=== PATIENT | female | born 1955 | race Caucasian/White ===

== ENCOUNTER 2020-12-05 05:50 | Inpatient (IN) ==
[2020-12-05] MEDS ORDERED: SODIUM CHLORIDE 0.9% 1,000 ML IV STA (06:15)
[2020-12-05] MEDS ORDERED: SODIUM CHLORIDE 0.9% 500 ML IV STA (06:15)
[2020-12-05 06:29] LABS: ABG Base Excess -8.8 MMOL/L (-2.5-2.5); ABG HCO3 13.4 MMOL/L (20-26); ABG Oxygen Saturation 95.8 % (95-100); ABG PH 7.439 (7.35-7.45); ABG PO2 79.7 MM HG (80-95)
[2020-12-05 06:35] LABS: Basophils % 0.6 % (0.0-0.8); Hematocrit 35.9 VOL% (35.7-47.0); Hemoglobin 11.8 GM/DL (12.0-16.0); Immature Granulocytes % 1.3 %; Immature Granulocytes Absolute 0.02 #; Lymphocytes # 0.2 10*3/uL (1.4-4.0); Mean Corpuscular HGB Conc 32.9 GM/DL (32-36); Mean Corpuscular Volume 82.3 FL (87-102); Mean Platelet Volume 11.2 FL (9.6-12.0); Monocytes % 1.9 % (1.7-12.7); Neutrophils % 83.2 % (38.7-73.9); Red Blood Count 4.36 MC/CUMM (3.8-5.5); Red Cell Distribution Width 14.5 % (9.3-17.3)
[2020-12-05 06:36] LABS: ABG PCO2 20.2 MM HG (35-48)
[2020-12-05 06:44] LABS: White Blood Count 1.5 T/CUMM (4-12)
[2020-12-05 06:45] LABS: Platelet Count 97 T/CUMM (130-400)
[2020-12-05 06:45] LABS: Bacteria,Urine Occasional /HPF (Few); Bilirubin,Urine Negative (Negative); Blood, Urine Large mg/dL (Negative); Glucose,Urine (UA) >=500 mg/dL (Negative); Ketones,Urine 20 mg/dL (Negative); Mucus,Urine Occasional /LPF (Occasional); Nitrite,Urine Positive (Negative); Protein,Urine 100 MG/DL; RBC,Urine 5 /HPF (0-4); Squamous Epithelial Cell,Urine Occasional /HPF (0-10); Urine Appearance Slightly Hazy (Clear); Urine Color Yellow (Yellow); Urine Specific Gravity 1.021 (1.001-1.035); Urine Urobilinogen < 2.0 EU/DL (0.2-1.0)
[2020-12-05] MEDS ORDERED: cefTRIAXone 1,000 MG in SODIUM CHLORIDE 0.9% 100 ML IV STA (06:48)
[2020-12-05 06:51] LABS: Albumin 2.3 G/DL (3.4-5.0); Calcium 8.3 MG/DL (8.5-10.1); Osmolality,Calculated 289.4 MOS/KG (273-304); Total Protein 6.7 G/DL (6.4-8.2)
[2020-12-05 06:55] LABS: Band Neutrophils 3 % (0-10); Eosinophils 2 % (0-10); Lymphocytes 12 % (20-55); Nucleated Red Blood Cells 1 (0-5); Platelet Estimate Decreased; Segmented Neutrophils 81 % (50-85); Total Cells Counted 100
[2020-12-05 06:56] LABS: Hypochromasia Slight; Microcytosis Slight
[2020-12-05] MEDS ORDERED: INSULIN REGULAR 100 UNIT/ML IV STA (07:05)
[2020-12-05] MEDS ORDERED: MAGNESIUM SULF RIDER 2 GM/50 ML PREMIX IV PRN (08:17)
[2020-12-05] MEDS ORDERED: POTASSIUM CHLORIDE RIDER 10 MEQ/100 ML PREMIX IV PRN (08:17)
[2020-12-05] MEDS ORDERED: SODIUM PHOSPHATE INJ 23.8 MMOL in SODIUM CHLORIDE 0.9% 250 ML IV PRN (08:17)
[2020-12-05] MEDS ORDERED: SODIUM BICARB INJ 100 MEQ in STERILE WATER INJ 400 ML IV PRN (08:17)
[2020-12-05] MEDS ORDERED: MAGNESIUM SULF RIDER 4 GM/100 ML PREMIX IV PRN (08:17)
[2020-12-05] MEDS ORDERED: DEXTROSE 50% 25 GM/50 ML VIAL IV PRN ×2 (08:17)
[2020-12-05] MEDS ORDERED: INSULIN REGULAR DRIP 100 ML IV SCH (08:30)
[2020-12-05] MEDS: POTASSIUM CHLORIDE 20 MEQ TABLET PO PRN ×5 (09:00→21:00)
[2020-12-05 09:43] LABS: Osmolality,Calculated 279.2 MOS/KG (273-304); Potassium 3.2 MMOL/L (3.5-5.1)
[2020-12-05] MEDS ORDERED: ALBUTEROL 2.5 MG/3 ML NEB RESP TX PRN (10:31)
[2020-12-05] MEDS: SODIUM CHLORIDE 0.45% 1,000 ML IV SCH ×2 (11:22→19:35)
[2020-12-05] MEDS: INSULIN LISPRO 100 UNIT/ML SUBCUT SCH ×3 (11:26→20:54)
[2020-12-05] MEDS: INSULIN GLARGINE 100 UNIT/ML SUBCUT SCH (11:26)
[2020-12-05] MEDS ORDERED: SODIUM CHLORIDE 0.9% 1,000 ML IV SCH (13:30)
[2020-12-05] MEDS: MENTHOL/ZINC OXIDE OINT 71 GM JAR TOP SCH ×2 (14:13→20:54)
[2020-12-05 14:39] LABS: Calcium 7.9 MG/DL (8.5-10.1); Osmolality,Calculated 278.5 MOS/KG (273-304); Potassium 3.7 MMOL/L (3.5-5.1)
[2020-12-05] MEDS ORDERED: SODIUM PHOSPHATE INJ 15 MMOL in SODIUM CHLORIDE 0.9% 250 ML IV ONE (16:00)
[2020-12-05] MEDS: GABAPENTIN 300 MG CAPSULE PO SCH ×2 (16:20→20:55)
[2020-12-05] MEDS: ACETAMINOPHEN 325 MG TABLET PO PRN (16:44)
[2020-12-05 18:47] LABS: Osmolality,Calculated 280.4 MOS/KG (273-304); Potassium 3.4 MMOL/L (3.5-5.1)
[2020-12-05] MEDS: traZODone 50 MG TABLET PO SCH (20:54)
[2020-12-05] MEDS: TOPIRAMATE 25 MG TABLET PO SCH (20:55)
[2020-12-05] MEDS: OLANZapine 5 MG TABLET PO SCH (20:55)
[2020-12-06] MEDS: POTASSIUM CHLORIDE 20 MEQ TABLET PO PRN (00:43)
[2020-12-06] MEDS: ACETAMINOPHEN 325 MG TABLET PO PRN ×2 (00:43→11:53)
[2020-12-06] MEDS ORDERED: SODIUM CHLORIDE 0.45% 1,000 ML IV SCH (01:30)
[2020-12-06] MEDS: SODIUM CHLORIDE 0.45% 1,000 ML IV SCH ×2 (03:54→11:52)
[2020-12-06 07:07] LABS: Basophils % 0.3 % (0.0-0.8); Eosinophils % 0.3 % (0.00-10.9); Hematocrit 31.4 VOL% (35.7-47.0); Hemoglobin 10.4 GM/DL (12.0-16.0); Immature Granulocytes % 5.8 %; Immature Granulocytes Absolute 0.38 #; Lymphocytes % 14.4 % (21.3-54.2); Mean Corpuscular HGB Conc 33.1 GM/DL (32-36); Mean Corpuscular Volume 82.2 FL (87-102); Mean Platelet Volume 10.5 FL (9.6-12.0); Monocytes % 9.4 % (1.7-12.7); Neutrophils % 69.8 % (38.7-73.9); Platelet Count 116 T/CUMM (130-400); Red Blood Count 3.82 MC/CUMM (3.8-5.5); Red Cell Distribution Width 14.9 % (9.3-17.3); White Blood Count 6.6 T/CUMM (4-12)
[2020-12-06 07:26] LABS: Eosinophils 1 % (0-10); Hypochromasia Slight; Lymphocytes 18 % (20-55); Microcytosis Slight; Platelet Estimate Decreased; Segmented Neutrophils 77 % (50-85); Total Cells Counted 100
[2020-12-06 07:33] LABS: Calcium 8.3 MG/DL (8.5-10.1); Osmolality,Calculated 277.1 MOS/KG (273-304); Potassium 4.4 MMOL/L (3.5-5.1)
[2020-12-06 07:36] LABS: Risk Ratio 17.91; VLDL Cholesterol 124.2 MG/DL
[2020-12-06] MEDS: INSULIN GLARGINE 100 UNIT/ML SUBCUT SCH ×2 (08:31→08:37)
[2020-12-06] MEDS: PANTOPRAZOLE 40 MG TABLET PO SCH (08:31)
[2020-12-06] MEDS: INSULIN LISPRO 100 UNIT/ML SUBCUT SCH ×5 (08:31→21:48)
[2020-12-06] MEDS: FENOFIBRATE 160 MG TABLET PO SCH (08:32)
[2020-12-06] MEDS: TOPIRAMATE 25 MG TABLET PO SCH ×2 (08:32→21:49)
[2020-12-06] MEDS: GABAPENTIN 300 MG CAPSULE PO SCH ×3 (08:32→21:48)
[2020-12-06] MEDS: PARoxetine 20 MG TABLET PO SCH (08:33)
[2020-12-06] MEDS: MENTHOL/ZINC OXIDE OINT 71 GM JAR TOP SCH ×2 (08:33→21:48)
[2020-12-06] MEDS: cefTRIAXone 1,000 MG in SODIUM CHLORIDE 0.9% 100 ML IV SCH (08:34)
[2020-12-06] MEDS ORDERED: SIMVASTATIN 10 MG TABLET PO SCH (09:00)
[2020-12-06] MEDS ORDERED: INFLUENZA VIRUS VACCINE 0.5 ML SYRINGE IM ONE (10:00)
[2020-12-06] MEDS ORDERED: PNEUMOCOCCAL VACCINE (13 VALENT) 0.5 ML SYRINGE IM ONE (10:00)
[2020-12-06] MEDS: NICOTINE 21 MG/24 HR PATCH TRANSDERM SCH (10:47)
[2020-12-06 11:17] LABS: Ferritin 704.5 ng/mL (8-252)
[2020-12-06] MEDS ORDERED: SODIUM PHOSPHATE INJ 15 MMOL in SODIUM CHLORIDE 0.9% 250 ML IV ONE (12:00)
[2020-12-06 14:19] LABS: Calcium 8.4 MG/DL (8.5-10.1); Potassium 4.2 MMOL/L (3.5-5.1)
[2020-12-06] MEDS: traZODone 50 MG TABLET PO SCH (21:48)
[2020-12-06] MEDS: OLANZapine 5 MG TABLET PO SCH (21:49)
[2020-12-07] MEDS: SODIUM CHLORIDE 0.45% 1,000 ML IV SCH ×3 (01:08→14:49)
[2020-12-07] MEDS ORDERED: FERROUS SULFATE 325 MG TABLET PO SCH (08:00)
[2020-12-07] MEDS: cefTRIAXone 1,000 MG in SODIUM CHLORIDE 0.9% 100 ML IV SCH (08:15)
[2020-12-07] MEDS: GABAPENTIN 300 MG CAPSULE PO SCH (08:16)
[2020-12-07] MEDS: PANTOPRAZOLE 40 MG TABLET PO SCH (08:16)
[2020-12-07] MEDS: PARoxetine 20 MG TABLET PO SCH (08:17)
[2020-12-07] MEDS: TOPIRAMATE 25 MG TABLET PO SCH (08:17)
[2020-12-07] MEDS: NICOTINE 21 MG/24 HR PATCH TRANSDERM SCH (08:18)
[2020-12-07] MEDS: FENOFIBRATE 160 MG TABLET PO SCH (08:25)
[2020-12-07 08:26] LABS: Basophils % 0.1 % (0.0-0.8); Eosinophils % 0.1 % (0.00-10.9); Hematocrit 28.9 VOL% (35.7-47.0); Immature Granulocytes % 2.3 %; Immature Granulocytes Absolute 0.17 #; Lymphocytes # 1.3 10*3/uL (1.4-4.0); Lymphocytes % 17.8 % (21.3-54.2); Mean Corpuscular HGB Conc 34.6 GM/DL (32-36); Mean Corpuscular Volume 80.1 FL (87-102); Mean Platelet Volume 10.9 FL (9.6-12.0); Monocytes % 9.2 % (1.7-12.7); Neutrophils % 70.5 % (38.7-73.9); Platelet Count 125 T/CUMM (130-400); Red Blood Count 3.61 MC/CUMM (3.8-5.5); Red Cell Distribution Width 15.3 % (9.3-17.3); White Blood Count 7.4 T/CUMM (4-12)
[2020-12-07] MEDS: INSULIN GLARGINE 100 UNIT/ML SUBCUT SCH (08:35)
[2020-12-07] MEDS: INSULIN LISPRO 100 UNIT/ML SUBCUT SCH ×4 (08:36→12:28)
[2020-12-07] MEDS: MENTHOL/ZINC OXIDE OINT 71 GM JAR TOP SCH (08:38)
[2020-12-07 08:46] LABS: Lymphocytes 16 % (20-55); Platelet Estimate Normal; Segmented Neutrophils 76 % (50-85); Total Cells Counted 100
[2020-12-07 08:57] LABS: Calcium 8.6 MG/DL (8.5-10.1); Osmolality,Calculated 281.7 MOS/KG (273-304); Potassium 3.6 MMOL/L (3.5-5.1)
[2020-12-07] MEDS ORDERED: AZITHROMYCIN INJ 500 MG in SODIUM CHLORIDE 0.9% 250 ML IV SCH (11:00)
[2020-12-07] MEDS ORDERED: METOPROLOL TARTRATE 25 MG TABLET PO SCH ×2 (11:00)
[2020-12-07 11:47] VITALS: BP 114/74
== END 2020-12-07 15:30 | disposition home or self-care (01) | DRG 871 ==
LOC: EDUNIT# → EDBD → N.ED 05:50 → N.EDINP 08:17 → SUATTDRO 08:17 → N.ICU 08:38 → N.4E 12-06 17:06
PROVIDERS: ADMIT Internal Medicine; ATTEND Internal Medicine

== ENCOUNTER 2021-10-05 14:15 | Inpatient (IN) ==
[2021-10-05] MEDS ORDERED: ASPIRIN 325 MG TABLET PO STA (14:55)
[2021-10-05] MEDS ORDERED: DILTIAZEM 25 MG/5 ML VIAL IV STA ×2 (14:57→16:07)
[2021-10-05 15:28] LABS: Basophils # 0.1 10*3/uL (0.0-0.2); Basophils % 0.7 % (0.0-0.8); Eosinophils % 0.1 % (0.00-10.9); Hematocrit 44.3 VOL% (35.7-47.0); Hemoglobin 13.8 GM/DL (12.0-16.0); Immature Granulocytes % 7.9 %; Immature Granulocytes Absolute 1.08 #; Lymphocytes # 0.8 10*3/uL (1.4-4.0); Lymphocytes % 5.8 % (21.3-54.2); Mean Corpuscular HGB Conc 31.2 GM/DL (32-36); Mean Corpuscular Volume 90.2 FL (87-102); Mean Platelet Volume 11.1 FL (9.6-12.0); Monocytes # 1.2 10*3/uL (0.11-0.8); Monocytes % 9.1 % (1.7-12.7); Neutrophils % 76.4 % (38.7-73.9); Platelet Count 216 T/CUMM (130-400); Red Blood Count 4.91 MC/CUMM (3.8-5.5); Red Cell Distribution Width 14.4 % (9.3-17.3); White Blood Count 13.6 T/CUMM (4-12)
[2021-10-05 15:45] LABS: Albumin 2.5 G/DL (3.4-5.0); Bilirubin,Total 0.7 MG/DL (0.20-1.00); Calcium 11.1 MG/DL (8.5-10.1); Osmolality,Calculated 297.8 MOS/KG (273-304); Potassium 4.4 MMOL/L (3.5-5.1)
[2021-10-05 15:58] LABS: Band Neutrophils 31 % (0-10); Lymphocytes 4 % (20-55); Platelet Estimate Adequate; Total Cells Counted 100
[2021-10-05] MEDS ORDERED: SODIUM CHLORIDE 0.9% 1,000 ML IV STA ×2 (16:02→16:03)
[2021-10-05] MEDS ORDERED: INSULIN REGULAR 100 UNIT/ML IV STA (16:02)
[2021-10-05] MEDS: DILTIAZEM INJ 100 MG in SODIUM CHLORIDE 0.9% 100 ML IV SCH (16:24)
[2021-10-05 16:27] LABS: Arterial Base Excess iSTAT -24 MMOL/L (-2.5-2.5); Arterial Bicarbonate iSTAT 4.1 MMOL/L (20-26); Arterial O2 Saturation iSTAT 97 % (95-100); Arterial PCO2 iSTAT 15 MM HG (35-48); Arterial PO2 iSTAT 121 MM HG (80-95); Arterial Total CO2 iSTAT < 5 MMO/L (23-27); Arterial pH iSTAT 7.058 (7.35-7.45)
[2021-10-05] MEDS ORDERED: LACTATED RINGERS 1,000 ML IV ONE (16:53)
[2021-10-05] MEDS ORDERED: DIGOXIN 0.5 MG/2 ML AMP IV STA (16:55)
[2021-10-05] MEDS ORDERED: MAGNESIUM SULF RIDER 4 GM/100 ML PREMIX IV PRN (17:06)
[2021-10-05] MEDS ORDERED: MAGNESIUM SULF RIDER 2 GM/50 ML PREMIX IV PRN (17:06)
[2021-10-05] MEDS ORDERED: SODIUM PHOSPHATE INJ 22.7 MMOL in SODIUM CHLORIDE 0.9% 250 ML IV PRN (17:06)
[2021-10-05] MEDS ORDERED: DEXTROSE 50% 25 GM/50 ML VIAL IV PRN (17:06)
[2021-10-05] MEDS ORDERED: GLUCAGON 1 MG VIAL IM PRN (17:06)
[2021-10-05] MEDS ORDERED: DEXTROSE 10% 250 ML BAG IV PRN ×2 (17:12)
[2021-10-05] MEDS ORDERED: LORazepam 1 MG TABLET ONE (17:21)
[2021-10-05] MEDS ORDERED: LORazepam 1 MG TABLET PO STA (17:30)
[2021-10-05] MEDS ORDERED: DIGOXIN 0.5 MG/2 ML AMP IV ONE (18:00)
[2021-10-05] MEDS: LACTATED RINGERS 1,000 ML IV SCH ×2 (19:30→23:04)
[2021-10-05 19:52] LABS: Calcium 9.7 MG/DL (8.5-10.1); Potassium 4.7 MMOL/L (3.5-5.1)
[2021-10-05] MEDS: INSULIN REGULAR DRIP 100 ML IV PRN (20:40)
[2021-10-05 20:51] LABS: Bacteria,Urine Occasional /HPF (Few); Glucose,Urine (UA) 500 mg/dL (Negative); Mucus,Urine Occasional /LPF (Occasional); Protein,Urine 100 mg/dL (Negative); Urine Appearance Clear (Clear); Urine Color Yellow (Yellow)
[2021-10-05 20:52] LABS: Bilirubin,Urine Small mg/dL (Negative); Blood, Urine Large mg/dL (Negative); Ketones,Urine >=160 mg/dL (Negative); Nitrite,Urine Negative (Negative)
[2021-10-05] MEDS ORDERED: INSULIN GLARGINE 100 UNIT/ML SUBCUT SCH (21:00)
[2021-10-05] MEDS: ENOXAPARIN 80 MG/0.8 ML SYRINGE SUBCUT SCH (21:50)
[2021-10-05] MEDS: GABAPENTIN 100 MG CAPSULE PO SCH (21:51)
[2021-10-05] MEDS: NYSTATIN CREAM 15 GM TUBE TOP SCH (21:51)
[2021-10-05] MEDS: OLANZapine 5 MG TABLET PO SCH (21:51)
[2021-10-06 00:49] LABS: Calcium 10.1 MG/DL (8.5-10.1); Osmolality,Calculated 289.7 MOS/KG (273-304); Potassium 4.1 MMOL/L (3.5-5.1)
[2021-10-06] MEDS: LACTATED RINGERS 1,000 ML IV SCH (04:25)
[2021-10-06 05:01] LABS: Basophils # 0.1 10*3/uL (0.0-0.2); Basophils % 2.2 % (0.0-0.8); Hematocrit 35.4 VOL% (35.7-47.0); Immature Granulocytes % 0.5 %; Immature Granulocytes Absolute 0.02 #; Lymphocytes # 0.4 10*3/uL (1.4-4.0); Lymphocytes % 9.4 % (21.3-54.2); Mean Corpuscular HGB Conc 32.8 GM/DL (32-36); Mean Corpuscular Volume 87.4 FL (87-102); Mean Platelet Volume 10.9 FL (9.6-12.0); Monocytes # 0.3 10*3/uL (0.11-0.8); Monocytes % 7.4 % (1.7-12.7); NRBC # 0.04 10*3/uL; Neutrophils % 80.5 % (38.7-73.9); Red Blood Count 4.05 MC/CUMM (3.8-5.5); Red Cell Distribution Width 14.4 % (9.3-17.3)
[2021-10-06 05:02] LABS: Hemoglobin 11.6 GM/DL (12.0-16.0); Platelet Count 136 T/CUMM (130-400); White Blood Count 4.2 T/CUMM (4-12)
[2021-10-06 05:17] LABS: Calcium 9.9 MG/DL (8.5-10.1); Osmolality,Calculated 290.1 MOS/KG (273-304); Potassium 3.8 MMOL/L (3.5-5.1)
[2021-10-06 05:29] LABS: Band Neutrophils 14 % (0-10); Lymphocytes 13 % (20-55); Nucleated Red Blood Cells 3 (0-5); Platelet Estimate Adequate; Total Cells Counted 100
[2021-10-06] MEDS: DEXTROSE 5% NACL 0.45% 1,000 ML IV SCH ×3 (05:40→20:21)
[2021-10-06 05:43] LABS: Phosphorous 0.8 MG/DL (2.5-4.9)
[2021-10-06] MEDS: POTASSIUM CHLORIDE 20 MEQ TABLET PO SCH ×2 (08:37→08:57)
[2021-10-06] MEDS: ENOXAPARIN 80 MG/0.8 ML SYRINGE SUBCUT SCH ×2 (08:53→20:18)
[2021-10-06] MEDS: NYSTATIN CREAM 15 GM TUBE TOP SCH ×2 (08:54→20:18)
[2021-10-06] MEDS: GABAPENTIN 100 MG CAPSULE PO SCH ×3 (08:55→20:18)
[2021-10-06] MEDS: POTASSIUM CHLORIDE RIDER 10 MEQ/100 ML PREMIX IV PRN ×2 (08:58→10:01)
[2021-10-06 09:20] LABS: Arterial Base Excess iSTAT -17 MMOL/L (-2.5-2.5); Arterial Bicarbonate iSTAT 8.6 MMOL/L (20-26); Arterial O2 Saturation iSTAT 91 % (95-100); Arterial PCO2 iSTAT 21 MM HG (35-48); Arterial PO2 iSTAT 71 MM HG (80-95); Arterial Total CO2 iSTAT 9 MMO/L (23-27); Arterial pH iSTAT 7.224 (7.35-7.45)
[2021-10-06 10:50] LABS: Calcium 9.4 MG/DL (8.5-10.1); Potassium 3.4 MMOL/L (3.5-5.1)
[2021-10-06] MEDS ORDERED: SUCCINYLCHOLINE 200 MG/10 ML VIAL ONE (11:20)
[2021-10-06] MEDS ORDERED: ETOMIDATE 20 MG/10 ML VIAL IV ONE ×2 (11:20→11:24)
[2021-10-06] MEDS ORDERED: SUCCINYLCHOLINE 200 MG/10 ML VIAL IV ONE (11:25)
[2021-10-06] MEDS ORDERED: SODIUM CHLORIDE 0.9% 1,000 ML IV ONE (11:26)
[2021-10-06] MEDS ORDERED: MIDAZOLAM 100 MG in SODIUM CHLORIDE 0.9% 80 ML IV PRN (11:28)
[2021-10-06] MEDS ORDERED: NOREPINEPHRINE 4 MG/4 ML VIAL IV ONE (11:30)
[2021-10-06] MEDS: NOREPINEPHRINE 8 MG in SODIUM CHLORIDE 0.9% 242 ML IV PRN ×2 (11:46→15:07)
[2021-10-06 13:04] LABS: Arterial Base Excess iSTAT -18 MMOL/L (-2.5-2.5); Arterial Bicarbonate iSTAT 9.9 MMOL/L (20-26); Arterial O2 Saturation iSTAT 100 % (95-100); Arterial PCO2 iSTAT 28 MM HG (35-48); Arterial PO2 iSTAT 471 MM HG (80-95); Arterial Total CO2 iSTAT 11 MMO/L (23-27); Arterial pH iSTAT 7.151 (7.35-7.45)
[2021-10-06] MEDS ORDERED: DEXTROSE 50% 25 GM/50 ML VIAL IV PRN (13:26)
[2021-10-06] MEDS ORDERED: GLUCAGON 1 MG VIAL IM PRN (13:26)
[2021-10-06] MEDS: DILTIAZEM INJ 100 MG in SODIUM CHLORIDE 0.9% 100 ML IV SCH (15:47)
[2021-10-06 16:08] LABS: Calcium 8.7 MG/DL (8.5-10.1); Osmolality,Calculated 301.7 MOS/KG (273-304); Potassium 3.5 MMOL/L (3.5-5.1)
[2021-10-06] MEDS: INSULIN REGULAR DRIP 100 ML IV PRN (16:43)
[2021-10-06] MEDS: NOREPINEPHRINE 16 MG in SODIUM CHLORIDE 0.9% 234 ML IV PRN ×2 (17:29→20:51)
[2021-10-06] MEDS ORDERED: SODIUM BICARBONATE 50 MEQ/50 ML VIAL IV ONE ×2 (19:48)
[2021-10-06 19:53] LABS: Arterial Base Excess iSTAT -20 MMOL/L (-2.5-2.5); Arterial O2 Saturation iSTAT 99 % (95-100); Arterial PCO2 iSTAT 27 MM HG (35-48); Arterial PO2 iSTAT 195 MM HG (80-95); Arterial Total CO2 iSTAT 9 MMO/L (23-27); Arterial pH iSTAT 7.084 (7.35-7.45)
[2021-10-06] MEDS: SODIUM BICARB INJ 150 MEQ in DEXTROSE 5% 850 ML IV SCH (20:00)
[2021-10-06] MEDS: OLANZapine 5 MG TABLET PO SCH (20:18)
[2021-10-06] MEDS ORDERED: POTASSIUM CHLORIDE RIDER 10 MEQ/100 ML PREMIX IV PRN (20:57)
[2021-10-06] MEDS ORDERED: DEXTROSE 10% 500 ML IV SCH (21:00)
[2021-10-06] MEDS: POTASSIUM CHLORIDE RIDER 20 MEQ/100 ML PREMIX IV PRN (21:11)
[2021-10-06] MEDS ORDERED: LACTATED RINGERS 500 ML IV ONE ×2 (22:47→23:32)
[2021-10-06 22:49] LABS: Calcium 8.9 MG/DL (8.5-10.1); Osmolality,Calculated 298.7 MOS/KG (273-304); Potassium 4.7 MMOL/L (3.5-5.1)
[2021-10-07] MEDS: NOREPINEPHRINE 16 MG in SODIUM CHLORIDE 0.9% 234 ML IV PRN ×7 (00:01→20:05)
[2021-10-07 01:01] LABS: ABG Base Excess -16.4 MMOL/L (-2.5-2.5); ABG HCO3 12.3 MMOL/L (20-26); ABG Oxygen Saturation 98.1 % (95-100); ABG PCO2 27.5 MM HG (35-48); ABG TCO2 9.7 MMOL/L (23-27)
[2021-10-07] MEDS ORDERED: SODIUM BICARBONATE 50 MEQ/50 ML VIAL IV ONE ×2 (01:11→03:20)
[2021-10-07] MEDS: PHENYLEPHRINE INJ 160 MG in SODIUM CHLORIDE 0.9% 234 ML IV PRN ×3 (02:05→16:41)
[2021-10-07] MEDS ORDERED: ACETAMINOPHEN 500 MG TABLET PO PRN (02:26)
[2021-10-07 02:30] LABS: Basophils # 0.1 10*3/uL (0.0-0.2); Basophils % 1.3 % (0.0-0.8); Hematocrit 29.2 VOL% (35.7-47.0); Hemoglobin 9.7 GM/DL (12.0-16.0); Immature Granulocytes % 4.3 %; Immature Granulocytes Absolute 0.23 #; Lymphocytes # 0.4 10*3/uL (1.4-4.0); Lymphocytes % 7.9 % (21.3-54.2); Mean Corpuscular HGB Conc 33.2 GM/DL (32-36); Mean Corpuscular Volume 83.4 FL (87-102); Mean Platelet Volume 11.4 FL (9.6-12.0); Monocytes # 0.4 10*3/uL (0.11-0.8); Monocytes % 7.1 % (1.7-12.7); NRBC # 0.15 10*3/uL; Neutrophils % 79.4 % (38.7-73.9); Platelet Count 107 T/CUMM (130-400); Red Cell Distribution Width 15.1 % (9.3-17.3); White Blood Count 5.3 T/CUMM (4-12)
[2021-10-07] MEDS ORDERED: HYDROCORTISONE 100 MG VIAL IV SCH (02:30)
[2021-10-07] MEDS ORDERED: ACETAMINOPHEN 650 MG SUPP RECTAL ONE (02:32)
[2021-10-07] MEDS ORDERED: VANCOMYCIN INJ 1,250 MG in SODIUM CHLORIDE 0.9% 250 ML IV PRN (02:41)
[2021-10-07 02:48] LABS: Albumin 1.1 G/DL (3.4-5.0); Bilirubin,Total 2.2 MG/DL (0.20-1.00); Calcium 8.7 MG/DL (8.5-10.1); Osmolality,Calculated 297.7 MOS/KG (273-304); Potassium 4.3 MMOL/L (3.5-5.1); Total Protein 5.3 G/DL (6.4-8.2)
[2021-10-07 02:58] LABS: Band Neutrophils 13 % (0-10); Lymphocytes 10 % (20-55); Nucleated Red Blood Cells 9 (0-5); Total Cells Counted 100
[2021-10-07 03:01] LABS: Platelet Estimate Decreased
[2021-10-07] MEDS: PIPERACILLIN/TAZOBACTAM 3,375 MG in SODIUM CHLORIDE 0.9% 100 ML IV SCH ×3 (03:17→18:08)
[2021-10-07] MEDS: INSULIN REGULAR DRIP 100 ML IV PRN (03:28)
[2021-10-07] MEDS ORDERED: DIAZEPAM 10 MG/2 ML SYRINGE IV ONE (03:41)
[2021-10-07] MEDS ORDERED: DIAZEPAM 10 MG/2 ML SYRINGE ONE (03:43)
[2021-10-07] MEDS ORDERED: VANCOMYCIN INJ 1,250 MG in SODIUM CHLORIDE 0.9% 250 ML IV ONE (04:00)
[2021-10-07] MEDS: ALBUMIN 25% 25 GM/100 ML VIAL IV SCH ×3 (04:40→20:03)
[2021-10-07 04:46] LABS: ABG Base Excess -12.4 MMOL/L (-2.5-2.5); ABG HCO3 14.7 MMOL/L (20-26); ABG Oxygen Saturation 96.4 % (95-100); ABG PCO2 32.1 MM HG (35-48); ABG PH 7.246 (7.35-7.45); ABG PO2 88.5 MM HG (80-95); ABG TCO2 12.9 MMOL/L (23-27)
[2021-10-07 04:58] LABS: INR 1.1; PT Patient Result 12.1 SECS (10.5-12.0); Partial Thromboplastin Time 56.4 SECS (23.7-32.9)
[2021-10-07] MEDS ORDERED: MICAFUNGIN 100 MG in SODIUM CHLORIDE 0.9% 100 ML IV SCH (05:00)
[2021-10-07] MEDS: CLINDAMYCIN INJ 600 MG/50 ML PREMIX IV SCH ×3 (05:20→20:55)
[2021-10-07 06:15] LABS: Calcium 8.6 MG/DL (8.5-10.1); Osmolality,Calculated 303.4 MOS/KG (273-304); Potassium 3.3 MMOL/L (3.5-5.1)
[2021-10-07] MEDS: SODIUM BICARB INJ 150 MEQ in DEXTROSE 5% 850 ML IV SCH (07:44)
[2021-10-07] MEDS: GABAPENTIN 100 MG CAPSULE PO SCH ×3 (08:59→20:54)
[2021-10-07] MEDS: NYSTATIN CREAM 15 GM TUBE TOP SCH ×2 (09:14→20:55)
[2021-10-07] MEDS: POTASSIUM CHLORIDE RIDER 20 MEQ/100 ML PREMIX IV PRN (09:24)
[2021-10-07 10:48] LABS: Calcium 8.3 MG/DL (8.5-10.1); Osmolality,Calculated 306.3 MOS/KG (273-304); Potassium 4.1 MMOL/L (3.5-5.1)
[2021-10-07] MEDS ORDERED: ZINC OXIDE PASTE 113 GM TUBE TOP PRN (11:24)
[2021-10-07] MEDS ORDERED: MIDAZOLAM 2 MG/2 ML VIAL IV ONE ×2 (15:48→17:27)
[2021-10-07] MEDS ORDERED: SODIUM BICARB INJ 150 MEQ in DEXTROSE 5% 1,000 ML IV SCH (16:00)
[2021-10-07 18:05] LABS: Calcium 7.8 MG/DL (8.5-10.1); Potassium 5.5 MMOL/L (3.5-5.1)
[2021-10-07 18:06] LABS: Osmolality,Calculated 300.4 MOS/KG (273-304)
[2021-10-07] MEDS ORDERED: DEXTROSE 10% 250 ML BAG IV PRN ×2 (18:30)
[2021-10-07] MEDS: OLANZapine 5 MG TABLET PO SCH (20:54)
[2021-10-07] MEDS ORDERED: ENOXAPARIN 80 MG/0.8 ML SYRINGE SUBCUT SCH (21:00)
[2021-10-07 22:22] VITALS: BP 30/20
== END 2021-10-07 21:25 | disposition expired | DRG 637 ==
LOC: N.ED 14:15 → SUATTDRO 16:53 → N.EDINP 16:53 → N.CC 19:03
PROVIDERS: ADMIT Internal Medicine; ATTEND Family Medicine